=== PATIENT | male | born 1935 | race Asian ===

== ENCOUNTER 2021-01-05 11:51 | Emergency (ER) | payer MEDICARE ==
[~2021-01-05] VITALS: Ht 172.7 cm; Wt 68.2 kg
[2021-01-05] MEDS ORDERED: METF-960 PO (11:57)
[2021-01-05] MEDS ORDERED: ACETAMINOPHEN 500 MG TABLET PO ONE (13:00)
[2021-01-05] MEDS ORDERED: POVIDONE-IODINE 10% 15 ML SOLUTION UD TP ONE (16:00)
[2021-01-05] MEDS ORDERED: BACITRACIN 0.9 GM PACKET OINTMENT TP ONE (16:00)
[2021-01-05] MEDS ORDERED: LIDOCAINE 1% 10 ML VIAL ID ONE (16:00)
[2021-01-05 17:02] VITALS: BP 158/67
== END 2021-01-05 17:30 | disposition home or self-care (01) ==
LOC: EMS 13:00
DX: S51.812A Laceration without foreign body of left forearm, initial encounter (principal); S23.3XXA Sprain of ligaments of thoracic spine, initial encounter; S20.212A Contusion of left front wall of thorax, initial encounter; E11.9 Type 2 diabetes mellitus without complications; Z79.84 Long term (current) use of oral hypoglycemic drugs; W19.XXXA Unspecified fall, initial encounter; Y93.89 Activity, other specified; Y92.89 Other specified places as the place of occurrence of the external cause; Y99.8 Other external cause status
CPT/HCPCS: 12002; 71101; 72100; 72170; 82962; 99283; J3490